=== PATIENT | female | born 1980 | race American Indian/Alaskan Native ===

== ENCOUNTER 2018-08-24 08:17 | Outpatient (CLI) | payer OTHER ==
--- NOTE | 2018-08-24 09:29 | Ultrasound Report ---
Complete abdominal ultrasound: Abdominal pain. Imaging of the liver, pancreas, spleen, and gallbladder are echogenic normal. The CBD diameter is 13 mm. Both kidneys are echogenically unremarkable. The right renal length is 10.8 cm and the left is 9.3 cm. The abdominal aorta has a proximal diameter of 1.8 cm, mid diameter of 1.5 cm, distal diameter of 15 mm. The right iliac artery is 8.4 mm and the left 8.3 mm. Impressions: Normal exam.
== END 2018-08-24 08:18 | disposition home or self-care (01) ==
LOC: SPVWC 08:17
PROVIDERS: ATTEND Internal Medicine Gastroenterology
DX: R10.13 Epigastric pain (principal)
CPT/HCPCS: 76700

== ENCOUNTER 2019-05-20 11:54 | Outpatient (CLI) | payer OTHER ==
--- NOTE | 2019-05-20 13:00 | XRay Report ---
SUPINE KUB: Acute abdominal pain. The abdominal gas pattern is unremarkable. No masses or organomegaly is identified and there is no gross evidence of free air or fluid. No significant soft tissue calcifications are noted. IMPRESSION: Normal study.
== END 2019-05-20 11:55 | disposition home or self-care (01) ==
LOC: SPVIMAG 11:54
PROVIDERS: ATTEND Family Medicine
DX: R10.0 Acute abdomen (principal)
CPT/HCPCS: 74018